=== PATIENT | male | born 1955 | race Caucasian/White ===

== ENCOUNTER 2021-10-07 11:48 | Emergency (ER) | payer MEDICAID ==
[~2021-10-07] VITALS: Ht 177.8 cm; Wt 68.0 kg
[2021-10-07] MEDS ORDERED: METHYLPREDNISOLONE SOD SUCC 125 MG/2 ML VIAL IV STA (11:59)
[2021-10-07] MEDS ORDERED: ALBUTEROL (0.083%) 2.5MG/3ML NEB HHN STA (11:59)
[2021-10-07] MEDS ORDERED: IPRATROPIUM BROMIDE (0.02%) 0.5MG/2.5ML NEB HHN STA (11:59)
[2021-10-07 12:02] VITALS: BP 154/83
[2021-10-07 12:30] LABS: BASOPHILS % 0.7 % (0.0-2.0); EOSINOPHILS % 1.9 % (0.0-5.0); HEMATOCRIT. 45.3 % (42.0-52.0); HEMOGLOBIN. 15.5 g/dL (14.0-18.0); MEAN CORPUSCULAR HEMOGLOBIN 32.2 pg (28.0-32.0); MEAN CORPUSCULAR VOLUME 94.2 fL (80.0-94.0); MEAN PLATELET VOLUME 8.1 fl (7.4-10.4); MONOCYTES % 7.9 % (2.0-8.0); NEUTROPHILS % 72.5 % (40.0-76.0); PLATELET 214 x1000/uL (130-400); RED CELL DISTRIBUTION WIDTH 14.9 % (11.6-14.6)
[2021-10-07 12:41] LABS: CHLORIDE 106 mEq/L (98-107)
[2021-10-07] MEDS ORDERED: ALBU18HF2 IH (15:21)
[2021-10-07] MEDS ORDERED: P50 MT (15:21)
[2021-10-07] MEDS ORDERED: AZIT500T3 MT (15:21)
== END 2021-10-07 16:16 | disposition home or self-care (01) ==
LOC: ER 11:55
DX: J44.1 Chronic obstructive pulmonary disease with (acute) exacerbation (principal); Z20.822 Contact with and (suspected) exposure to COVID-19
CPT/HCPCS: 36415; 71045; 80053; 83880; 84484; 85025; 87426; 94644; 96374; 99285; J2930; Z7610